=== PATIENT | female | born 1970 | race Caucasian/White ===

== ENCOUNTER 2016-09-10 12:30 | Inpatient (IN) | payer OTHER ==
[~2016-09-10] VITALS: Ht 165.1 cm; Wt 56.7 kg
[2016-09-10] MEDS ORDERED: HCTZ/LISINOPRIL1 TA2 PO (15:10)
[2016-09-10 15:50] LABS: BASOPHIL % 0.5 % (0-2); PLATELET COUNT 365 x10^3mcL (130-400); RED CELL DISTRIBUTION WIDTH 13.6 % (11.5-14.5)
[2016-09-10] MEDS ORDERED: ALBUTEROL0.63 MG/3 IH (15:55)
[2016-09-10 16:01] LABS: CALCIUM 9.2 mg/dL (8.5-10.1); CARBON DIOXIDE 27.6 mmol/L (21-32); CHLORIDE SERUM 104 mmol/L (98-107); CREATININE SERUM 0.7 mg/dL (0.6-1.0); GFR1 > 60 mL/min; GLUCOSE SERUM 86 mg/dL (74-106); POTASSIUM SERUM 3.3 mmol/L (3.5-5.1); SODIUM SERUM 141 mmol/L (136-145)
[2016-09-10 16:01] LABS: microscopic required? YES; urine erythrocyte TRACE (NEGATIVE)
[2016-09-10 16:07] LABS: ALBUMIN 3.8 g/dL (3.4-5.0); ALKALINE PHOSPHATASE 59 U/L (46-116); ALT/SGPT 19 U/L (14-59); AST/SGOT 14 U/L (15-37); BILIRUBIN TOTAL 0.2 mg/dL (0.20-1.00); TOTAL PROTEIN, SERUM 7.5 g/dL (6.4-8.2)
[2016-09-10 16:15] LABS: T3 TOTAL 1.09 ng/mL
[2016-09-10 16:16] LABS: AMPHETAMINE QUAL UR NONE DETECTED (NEG <=1000)
[2016-09-10 16:19] LABS: CHOLESTEROL/HDL RATIO 3.5; MAGNESIUM 2.2 mg/dL (1.8-2.4); PHOSPHOROUS 3.9 mg/dL (2.5-4.9)
[2016-09-10 16:29] LABS: FREE T4 1.07 ng/dL (0.76-1.46); FREE THYROXINE INDEX 3.8 ug/dL (1.4-4.5); T4(THYROXINE) 11.1 ug/dL (4.7-13.3)
[2016-09-10 18:38] VITALS: BP 119/79
[2016-09-10 21:04] VITALS: BP 118/76
[2016-09-11 06:14] VITALS: BP 101/67
[2016-09-11 07:39] LABS: CHLORIDE SERUM 110 mmol/L (98-107); CREATININE SERUM 0.7 mg/dL (0.6-1.0); GFR1 > 60 mL/min; GLUCOSE SERUM 93 mg/dL (74-106); MAGNESIUM 1.7 mg/dL (1.8-2.4); PHOSPHOROUS 2.8 mg/dL (2.5-4.9); POTASSIUM SERUM 4.1 mmol/L (3.5-5.1); SODIUM SERUM 143 mmol/L (136-145)
[2016-09-11 07:44] LABS: BASOPHIL % 0.3 % (0-2); PLATELET COUNT 328 x10^3mcL (130-400); RED CELL DISTRIBUTION WIDTH 13.6 % (11.5-14.5)
[2016-09-11 10:02] VITALS: BP 124/61
[2016-09-11 13:43] VITALS: BP 123/83
[2016-09-11 17:11] VITALS: BP 121/75
[2016-09-11 21:34] VITALS: BP 124/64
[2016-09-12 05:24] VITALS: BP 122/66
[2016-09-12 07:13] LABS: BASOPHIL % 0.4 % (0-2); PLATELET COUNT 315 x10^3mcL (130-400); RED CELL DISTRIBUTION WIDTH 13.6 % (11.5-14.5)
[2016-09-12 07:30] LABS: CARBON DIOXIDE 26.8 mmol/L (21-32); CHLORIDE SERUM 108 mmol/L (98-107); CREATININE SERUM 0.8 mg/dL (0.6-1.0); GFR1 > 60 mL/min; GLUCOSE SERUM 88 mg/dL (74-106); PHOSPHOROUS 3.5 mg/dL (2.5-4.9); POTASSIUM SERUM 3.8 mmol/L (3.5-5.1); SODIUM SERUM 142 mmol/L (136-145)
[2016-09-12 09:45] VITALS: BP 133/90
[2016-09-12 14:21] VITALS: BP 125/77
[2016-09-12 14:45] VITALS: BP 125/77
[2016-09-12] MEDS ORDERED: ATORVASTATIN CA20 M1 PO (14:52)
[2016-09-12] MEDS ORDERED: ECO81 PO (15:43)
[2016-09-12] MEDS ORDERED: MECLIZINE HCL12.5 MG PO (15:43)
== END 2016-09-12 17:00 | disposition home or self-care (01) | DRG 203 ==
LOC: ED 12:30 → DU 14:36
PROVIDERS: Emergency Medicine Emergency Medical Services; Family Medicine; ADMIT Family Medicine
DX: M94.0 Chondrocostal junction syndrome [Tietze] (principal); E83.42 Hypomagnesemia; I10 Essential (primary) hypertension; R55 Syncope and collapse; E87.6 Hypokalemia; E78.5 Hyperlipidemia, unspecified; Z68.20 Body mass index [BMI] 20.0-20.9, adult; Z87.891 Personal history of nicotine dependence
CPT/HCPCS: 83880; 84439; 85378; J3475; J7030; Q0092

== ENCOUNTER 2017-02-11 12:01 | Emergency (ER) | payer SELFPAY ==
[~2017-02-11] VITALS: Ht 157.5 cm; Wt 54.6 kg
[~2017-02-11 12:01] MED LIST: ALBUTEROL0.63 MG/3 IH; ATORVASTATIN CA20 M1 PO; ECO81 PO; HCTZ/LISINOPRIL1 TA2 PO; MECLIZINE HCL12.5 MG PO
[2017-02-11 13:51] VITALS: BP 139/80; Ht 157.5 cm; Wt 54.6 kg
== END 2017-02-11 17:18 | disposition left against medical advice (07) ==
LOC: ED 12:01
DX: Z53.21 Procedure and treatment not carried out due to patient leaving prior to being seen by health care provider (principal)

== ENCOUNTER 2018-12-05 14:19 | Emergency (ER) | payer OTHER ==
[~2018-12-05] VITALS: Ht 157.5 cm; Wt 57.2 kg
[2018-12-05 14:24] VITALS: Ht 157.5 cm; Wt 57.2 kg
[2018-12-05 18:02] VITALS: BP 186/106
== END 2018-12-05 18:02 | disposition home or self-care (01) ==
LOC: ED 14:19
DX: M54.6 Pain in thoracic spine (principal); I10 Essential (primary) hypertension; F41.9 Anxiety disorder, unspecified
CPT/HCPCS: 72072; J1885

== ENCOUNTER 2019-11-21 16:14 | Emergency (ER) | payer OTHER ==
[~2019-11-21] VITALS: Ht 154.9 cm; Wt 57.6 kg
[2019-11-21 16:15] VITALS: Ht 154.9 cm; Wt 57.6 kg
[2019-11-21 17:14] LABS: PLATELET COUNT 292 x10^3mcL (130-400); RED CELL DISTRIBUTION WIDTH 13.6 % (11.5-14.5)
[2019-11-21 17:31] LABS: CALCIUM 9.6 mg/dL (8.5-10.1); CARBON DIOXIDE 21.9 mmol/L (21-32); CHLORIDE SERUM 100 mmol/L (98-107); CREATININE SERUM 0.9 mg/dL (0.6-1.0); GFR1 > 60 mL/min; GLUCOSE SERUM 177 mg/dL (74-106); POTASSIUM SERUM 3.2 mmol/L (3.5-5.1); SODIUM SERUM 136 mmol/L (136-145)
[2019-11-21 17:36] LABS: ALBUMIN 4.6 g/dL (3.4-5.0); ALKALINE PHOSPHATASE 78 U/L (46-116); ALT/SGPT 31 U/L (14-59); AST/SGOT 29 U/L (15-37); BILIRUBIN TOTAL 0.49 mg/dL (0.20-1.00); LIPASE 95 IU/L (73-393)
[2019-11-21 17:41] LABS: AMYLASE 292 U/L (25-115); TOTAL PROTEIN, SERUM 8.6 g/dL (6.4-8.2)
[2019-11-21 17:44] LABS: BAND NEUTROPHIL 3 % (0-10); MONOCYTE 3 % (0-7); SEGMENTED NEUTROPHILS 90 % (37-75)
[2019-11-21 17:45] LABS: rbc morphology (normal/abnorm) NORMAL (NORMAL)
[2019-11-21 18:03] VITALS: BP 152/88
[2019-11-21 19:48] LABS: UA SPECIFIC GRAVITY 1.025 (1.005-1.035); microscopic required? YES; urine erythrocyte 2+ (NEGATIVE)
== END 2019-11-21 23:30 | disposition short-term general hospital (02) ==
LOC: ED 16:14
PROVIDERS: Emergency Medicine
DX: N20.0 Calculus of kidney (principal); E86.0 Dehydration; A41.9 Sepsis, unspecified organism; I10 Essential (primary) hypertension; Z98.890 Other specified postprocedural states
CPT/HCPCS: 87491; 87591; J2270; J2543; J3480; J7030; J7060; Q0092